=== PATIENT | male | born 1945 | race Caucasian/White ===

== ENCOUNTER 2022-07-04 15:24 | Outpatient (REF) | payer MEDICARE, SELFPAY ==
--- NOTE | ~2022-07-04 | XR_ITS ---
EXAMINATION: XR CERVICAL SPINE EXAMINATION: XR cervical spine 3V CLINICAL INFORMATION: Kyphoscoliosis COMPARISON: None TECHNIQUE: 4 views of the cervical spine were obtained. FINDINGS: The cervical spine is visualized to the level of C7 on the lateral view. Mild anterolisthesis of C5 on C6 and mild retrolisthesis of C4 on C5. Vertebral body heights are maintained. Odontoid view is suboptimal however the visualized portion of the dens appears intact and the alignment of C1 on C2 appears maintained. Moderate degenerative disc disease at multiple levels, manifested by loss of disc space height and facet arthropathy.. No prevertebral soft tissue swelling. XR/XR cervical spine 3V IMPRESSION: * Moderate spondylosis of the cervical spine, as above detailed. * Mild neural foraminal narrowing, as above detailed.
--- NOTE | ~2022-07-04 | XR_ITS ---
EXAMINATION: XR THORACIC SPINE CLINICAL INFORMATION: Reason for Exam KYPHOSCOLIOSIS COMPARISON: None TECHNIQUE: 3 views of the thoracic spine FINDINGS: Motion degraded lateral views despite repeat attempts limits evaluation. Question of possible age indeterminate wedge compression deformities at the thoracolumbar junction favored to reflect T11 and T12, and an additional age-indeterminate wedge compression deformity in the upper lumbar spine favored to reflect L2. Dextroconvex curvature of the thoracic spine. Mild multilevel degenerative disc disease with multilevel loss of disc space height. Atherosclerotic calcifications of the abdominal aorta. XR/XR thoracic spine 3V IMPRESSION: Motion degraded lateral views despite repeat attempts limits evaluation. Question of possible age indeterminate wedge compression deformities at the thoracolumbar junction favored to reflect T11 and T12, and an additional age-indeterminate wedge compression deformity in the upper lumbar spine favored to reflect L2. Consider repeat radiographs or CT for confirmation given the limitations of motion. Dextroconvex curvature of the thoracic spine with mild multilevel degenerative disc disease.
== END 2022-07-04 15:25 | disposition home or self-care (01) ==
LOC: HO.XRAY 15:24
PROVIDERS: PCP Pediatrics; Visit Provider Psychiatry & Neurology Neurology
DX: M41.9 Scoliosis, unspecified (principal)
CPT/HCPCS: 72040; 72072

== ENCOUNTER 2023-03-27 06:12 | Outpatient (REF) | payer MEDICARE, SELFPAY ==
[2023-03-27 07:07] LABS: Anion Gap 14 (12-20); Blood Urea Nitrogen 17 mg/dL (9-16); Calcium 9.2 mg/dL (8.4-10.2); Carbon Dioxide 26 mmol/L (22-29); Chloride 102 mmol/L (96-108); Estimated Glomerular Filt Rate > 60; Glucose Random 89 mg/dL (60-115); Potassium 4.2 mmol/L (3.3-5.1); Sodium 138 mmol/L (135-145)
[2023-03-27 07:47] LABS: Basophils Percent Auto 0.7 % (0-2); Eosinophils Absolute Auto 0.1 X10*3/uL (0.0-0.4); Eosinophils Percent Auto 2.4 % (0-4); Hematocrit 47.6 % (42.0-52.0); Hemoglobin 16.3 g/dl (14.0-18.0); Imm Gran Abs Auto 0.04 X10*3/uL (0.00-0.03); Imm Gran Pct Auto 0.7 % (0.0-0.4); Lymphocytes Absolute Auto 1.5 X10*3/uL (1.2-4.9); MANUAL DIFF FLAG SCAN; Mean Corpuscular HGB Conc 34.2 g/dl (31.0-36.0); Mean Corpuscular Hemoglobin 31.7 pg (27.0-33.0); Mean Corpuscular Volume 92.6 fL (80.0-98.0); Mean Platelet Volume 9.9 fL (9.4-12.4); Monocytes Absolute Auto 1.3 X10*3/uL (0.1-1.2); Monocytes Percent Auto 22.1 % (2-11); Neutrophils Absolute Auto 2.8 x10*3/uL (2.0-8.3); Neutrophils Percent Auto 48.1 % (45-73); Platelet Count 154 X10*3/uL (160-400); Red Blood Count 5.14 X10*6/uL (4.60-5.80); Red Cell Distribution Width 13.2 % (11.0-16.0); SCAN SMEAR FLAG 1; White Blood Count 5.9 X10*3/uL (4.8-10.8)
[2023-03-27 08:24] LABS: SLIDE REVIEW VERIFIED
== END 2023-03-27 06:13 | disposition home or self-care (01) ==
LOC: HO.MMNH2L 06:12
PROVIDERS: Visit Provider Family Medicine
DX: U07.1 COVID-19 (principal); R53.1 Weakness
CPT/HCPCS: 36415; 80048; 85025

== ENCOUNTER 2023-03-29 21:24 | Outpatient (REF) | payer MEDICARE, SELFPAY ==
[2023-03-29 21:35] LABS: Appearance Urine Cloudy; Color Urine Yellow; Glucose Urine UA Negative (Negative); Leukocyte Esterase Urine Large (3+) (Negative); Nitrite Urine Positive (Negative); PH 5.5 (5.0-9.0); UMIC TRIGGER UA YES; Urine Blood Large (3+) (Negative); Urine Ketones Negative (Negative); Urine Protein Trace mg/dL (Neg-Trace)
[2023-03-29 21:48] LABS: Bacteria Urine 4+ (None Seen); Hyaline Casts Urine 0-2 /LPF (0-2); RBC Urine >20 /HPF (0-2); Squamous Epithelial Cell Urine 0-2 /HPF (0-2); WBC Urine >50 /HPF (0-5)
== END 2023-03-29 21:25 | disposition home or self-care (01) ==
LOC: HO.MMNH2L 21:24
PROVIDERS: Visit Provider Family Medicine
DX: R53.1 Weakness (principal)
CPT/HCPCS: 81001; 87086; 87088; 87186

== ENCOUNTER 2023-04-03 06:19 | Outpatient (REF) | payer MEDICARE, SELFPAY ==
[2023-04-03 06:09] LABS: MANUAL DIFF FLAG NO
[2023-04-03 06:47] LABS: Basophils Percent Auto 0.4 % (0-2); Eosinophils Absolute Auto 0.2 X10*3/uL (0.0-0.4); Eosinophils Percent Auto 2.7 % (0-4); Hematocrit 40.8 % (42.0-52.0); Hemoglobin 13.4 g/dl (14.0-18.0); Imm Gran Abs Auto 0.06 X10*3/uL (0.00-0.03); Imm Gran Pct Auto 0.7 % (0.0-0.4); Lymphocytes Absolute Auto 1.5 X10*3/uL (1.2-4.9); Lymphocytes Percent Auto 18.3 % (20-40); Mean Corpuscular HGB Conc 32.8 g/dl (31.0-36.0); Mean Corpuscular Hemoglobin 30.7 pg (27.0-33.0); Mean Corpuscular Volume 93.4 fL (80.0-98.0); Monocytes Percent Auto 11.8 % (2-11); Neutrophils Absolute Auto 5.3 x10*3/uL (2.0-8.3); Neutrophils Percent Auto 66.1 % (45-73); Platelet Count 160 X10*3/uL (160-400); Red Blood Count 4.37 X10*6/uL (4.60-5.80); Red Cell Distribution Width 13.1 % (11.0-16.0); White Blood Count 8.1 X10*3/uL (4.8-10.8)
[2023-04-03 07:39] LABS: Anion Gap 15 (12-20); Blood Urea Nitrogen 11 mg/dL (9-16); Calcium 9.1 mg/dL (8.4-10.2); Carbon Dioxide 27 mmol/L (22-29); Chloride 101 mmol/L (96-108); Estimated Glomerular Filt Rate > 60; Glucose Random 84 mg/dL (60-115); Potassium 3.9 mmol/L (3.3-5.1); Sodium 139 mmol/L (135-145)
== END 2023-04-03 06:20 | disposition home or self-care (01) ==
LOC: HO.MMNH2L 06:19
PROVIDERS: Visit Provider Family Medicine
DX: R53.1 Weakness (principal); U07.1 COVID-19
CPT/HCPCS: 36415; 80048; 85025